=== PATIENT | female | born 1950 | race Caucasian/White ===

== ENCOUNTER → 2017-06-14 | Outpatient (CLI) | payer MEDICARE ==
[~2017-06-14] MED LIST: ACIDOPHILUS LA1 EACH PO; ALLOPURINOL100 MG PO; CEFADROXIL500 M1 PO; CYCLOBENZAPRINE10 MG PO; DOK100 M1 PO; DOXYCYCLINE100 M3 PO; FLAGYL500 MG PO; HYDROCODONE BIT1 T11 PO; LISINOPRIL10 M1 PO; LORAZEPAM1 MG PO; LYRICA225 MG PO; NEURONTIN300 MG PO; NUCYNTA50 MG PO; PEPTIC REL262 MG/15 PO; QUETIAPINE FUMA50 M1 PO; QUININE SULFAT324 MG PO
== END | disposition home or self-care (01) ==
LOC: RAD 09:23
DX: I10 Essential (primary) hypertension (principal); R05 Cough; R06.02 Shortness of breath; R09.89 Other specified symptoms and signs involving the circulatory and respiratory systems

== ENCOUNTER → 2017-07-19 | Outpatient (CLI) | payer MEDICARE | END | disposition home or self-care (01) | LOC: RAD 15:21 | DX: M46.02 Spinal enthesopathy, cervical region (principal) ==

== ENCOUNTER 2018-12-28 15:40 | Inpatient (IN) | payer MEDICARE ==
[~2018-12-28] VITALS: Ht 167.6 cm; Wt 95.7 kg
--- NOTE | ~2018-12-28 | EKG ---
[place], [place] ELECTROCARDIOGRAM REPORT NAME: ENRIQUE LITTLE UNIT #: [id number] ROOM: 408 DOCTOR: EPIPHANY DRAFT REPORT BIRTHDATE: [birth year] [facility] Test Date: 2018-12-28 Test Time: 21:07:44 Pat Name: ENRIQUE LITTLE Department: Room: 408 Gender: F Health Safety Specialist: Marisol Mchugh : 1950 Requested By: MARLENI ABEL DNP Order Number: [id number] Reading MD: Bradley Nguyen MD Measurements Intervals [place] Rate: 70 P: 20 LA: 180 QRS: -28 QRSD: 104 T: 37 QT: 446 QTc: 482 Interpretive Statements Sinus rhythm Borderline left axis deviation Abnormal R-wave progression, late transition No previous ECG available for comparison Electronically Signed On 12-29-2018 14:46:32 PDT by Bradley Nguyen MD CM:[email or web address]:ELECTROCARDIOGRAM REPORT [id number] MARLENI ABEL DNP EPIPHANY DRAFT REPORT MARLENI ABEL DNP
--- NOTE | ~2018-12-28 | EKG ---
[place], [place] ELECTROCARDIOGRAM REPORT NAME: ENRIQUE LITTLE UNIT #: [id number] ROOM: 408 DOCTOR: EPIPHNOHEMI DRAFT REPORT BIRTHDATE: [birth year] [facility] Test Date: 2018-12-28 Test Time: 15:53:20 Pat Name: ENRIQUE LITTLE Department: Room: 408 Gender: F Prison Guard: Marisol Mchugh : 1950 Requested By: MARLENI ABEL DNP Order Number: [id number] Reading MD: Bradley Nguyen MD Measurements Intervals [place] Rate: 77 P: 33 AK: 155 QRS: -33 QRSD: 94 T: 42 QT: 407 QTc: 461 Interpretive Statements Sinus rhythm Left axis deviation Low voltage, precordial leads Abnormal R-wave progression, late transition No previous ECG available for comparison Electronically Signed On 12-29-2018 4:40:08 PDT by Bradley Nguyen MD CM:EKGRPT:ELECTROCARDIOGRAM REPORT [id number] MARLENI ABEL DNP EPIPHANY DRAFT REPORT MARLENI ABEL DNP
--- NOTE | ~2018-12-28 | EKG ---
[place], [place] ELECTROCARDIOGRAM REPORT NAME: ENRIQUE LITTLE UNIT #: [id number] ROOM: 408 DOCTOR: JAIME DRAFT REPORT BIRTHDATE: [birth year] [facility] Test Date: 2018-12-28 Test Time: 18:42:32 Pat Name: ENRIQUE LITTLE Department: Room: 408 Gender: F Diagnostic Radiologist: Marisol Mchugh : 1950 Requested By: MARLENI ABEL DNP Order Number: [id number] Reading MD: Bradley Nguyen MD Measurements Intervals [place] Rate: 71 P: 38 LA: 169 QRS: -28 QRSD: 101 T: 51 QT: 441 QTc: 480 Interpretive Statements Sinus rhythm Left axis deviation Abnormal R-wave progression, late transition No previous ECG available for comparison Electronically Signed On 12-29-2018 4:46:27 PDT by Bradley Nguyen MD CM:EKGRPT:ELECTROCARDIOGRAM REPORT [id number] MARLENI ABEL DNP EPIPHANY DRAFT REPORT MARLENI ABEL DNP
[2018-12-28 15:40] VITALS: BP 111/61
[~2018-12-28 15:40] MED LIST changes: -CEFADROXIL500 M1 PO; +CIPRO500 MG PO; -LYRICA225 MG PO; +LYRICA300 MG PO
[2018-12-28 17:15] LABS: BASO # 0.1 10*3/uL (0.0-0.1); BASO % 0.9 % (0.0-1.0); EOS # 0.2 10*3/uL (0.0-0.4); EOS % 2.7 % (1.0-4.0); LYMPH % 29.8 % (27.0-41.0); MEAN CELL VOLUME 86.2 fl (81.0-99.0); MEAN CORPUSCULAR HGB 27.2 pg (27.0-31.0); MEAN CORPUSCULAR HGB CONC 31.6 g/dl (33.0-37.0); MEAN PLATELET VOLUME 10.5 fl (9.6-12.3); MONO % 14.5 % (3.0-9.0); NEUT # 3.4 10*3/uL (2.3-7.9); NEUT % 51.1 % (47.0-73.0); PLATELET COUNT AUTOMATED 193 10*3/uL (130-400); RED BLOOD COUNT 4.41 10*6/uL (4.10-5.10); RED CELL DISTRI WIDTH 20.2 % (0-14.5); WHITE BLOOD COUNT 6.7 10*3/uL (4.8-10.8)
[2018-12-28 17:26] LABS: ACT PARTIAL THROMBO TIME 36.8 SECONDS (20.0-32.1); INTERNATIONAL NORM RATIO 0.9 (2.0-3.5)
[2018-12-28 17:31] LABS: ALBUMIN 3.4 gm/dl (3.1-4.5); ALKALINE PHOSPHATASE 106 U/L (45-117); BUN 33 mg/dl (7-24); CHLORIDE 110 mmol/L (98-107); CREATININE 1.09 mg/dL (0.55-1.02); LIPASE 212 U/L (73-393); POTASSIUM 4.2 mmol/L (3.5-5.1); SGOT/AST 27 IU/L (3-35); SODIUM 139 mmol/L (136-145); TOTAL PROTEIN 7.4 gm/dL (6.4-8.2)
[2018-12-28 17:41] LABS: SGPT/ALT 26 U/L (12-78)
[2018-12-28 17:45] LABS: TROPONIN I < 0.015 ng/ml (<0.045)
--- NOTE | 2018-12-28 17:59 | NUR ---
PT HAS BEEN RESTING,SHE IS MILDLY DROWSY,REMAINS ALERT. APPEARS LESS ANXIOUS,PAIN HAS IMPROVED AFTER RX GIVEN. WAITING FOR TEST RESULTS. FISH LIGHT
[2018-12-28 18:06] LABS: BILIRUBIN NEGATIVE (NEGATIVE); BLOOD NEGATIVE (NEGATIVE); CLARITY CLEAR (CLEAR); COLOR YELLOW (YELLOW); GLUCOSE NEGATIVE (NEGATIVE); KETONE NEGATIVE (NEGATIVE); LEUKO ESTERASE NEGATIVE (NEGATIVE); NITRITE NEGATIVE (NEGATIVE); PH 5.5 (5.0-9.0); UROBILINOGEN 0.2 E.U./dl (0.2-1.0)
[2018-12-28 18:42] VITALS: BP 116/58
--- NOTE | 2018-12-28 19:06 | NUR ---
NURSE TO NURSE REPORT GIVEN TO THIS RN.PT AWAITING ROOM ASSIGNMENT FOR ADMISSION.
--- NOTE | 2018-12-28 19:20 | NUR ---
PT UPDATE ON PLAN OF CARE AT THIS TIME.PT DENIES ANY OPEN WOUNDS OR SORES.PT RESTING IN BED PLAYING ON HIS PHONE.
--- NOTE | 2018-12-28 19:35 | NUR ---
ADVISED BY COUNTER CLERK [employer]S NO BED AVAILABLE AT THIS TIME.
[2018-12-28 20:23] VITALS: BP 113/63
--- NOTE | 2018-12-28 20:34 | NUR ---
PT RESTING IN BED.VITALS REASSESSED.PT PROVIDED DRINK OF WATER.PT REPORTS SHE I HUNGRY AND OFFERED TURKEY SANDWICH AND CRACKERS.PT REFUSED FOOD I OFFERED AT THIS TIME.
--- NOTE | 2018-12-28 21:29 | NUR ---
PT RESTING IN BED WITH EYES CLOSED.PT PROVIDED PILLOW AND BLANKET.
--- NOTE | 2018-12-28 22:36 | NUR ---
PT AMBULATORY TO AND FROM RESTROOM.PT PROVIDED ROOM MEAL BY FAMILY.CALL THOMAS IS WITHIN REACH.
--- NOTE | 2018-12-28 22:55 | NUR ---
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
--- NOTE | 2018-12-28 23:57 | NUR ---
NEW IV ESTABLISHED AND FLUIDS CONTINUE TO INFUSE @ 125ML/HR.
[2018-12-29 00:25] VITALS: BP 111/63
--- NOTE | 2018-12-29 01:54 | NUR ---
PT PROVIDED BED FROM UNIT.PT REQUESTING MEDICATION OF SEROQUEL TO HELP HER SLEEP.
--- NOTE | 2018-12-29 02:04 | NUR ---
MINE SHIFTER CONTACTED FOR MEDICATION OF RESTORIL.
[2018-12-29 02:36] VITALS: BP 120/54
--- NOTE | 2018-12-29 03:41 | NUR ---
PT INFUSION OF 1 LITER BAG NS COMPLETED.IV HEPLOCK IN PLACE.
[2018-12-29 05:40] VITALS: BP 127/88
--- NOTE | 2018-12-29 05:40 | NUR ---
Time: 539 A 68 year old FEMALE admitted to 4E under services of ANSHU GOMEZ DO, Pt. arrived via bed from ER. Chief complaint: DYSPNEA. ZIGGY PYLE
[2018-12-29] MEDS ORDERED: FLECTOR1 EACH TD (06:26)
[2018-12-29] MEDS ORDERED: CYMBALTA30 MG PO ×2 (06:27→09:34)
--- NOTE | 2018-12-29 06:28 | NUR ---
CALLED DR. GUADARRAMA CALLED AND AWARE MEDICATIONS ARE VERIFIED.
[2018-12-29 06:48] LABS: BASO % 0.2 % (0.0-1.0); HEMATOCRIT 37.2 % (37.0-47.0); HEMOGLOBIN 11.9 g/dl (12.0-16.0); LYMPH # 0.6 10*3/uL (1.3-4.4); LYMPH % 8.9 % (27.0-41.0); MEAN CELL VOLUME 85.7 fl (81.0-99.0); MEAN CORPUSCULAR HGB 27.4 pg (27.0-31.0); MEAN PLATELET VOLUME 10.9 fl (9.6-12.3); MONO # 0.1 10*3/uL (0.1-1.0); NEUT # 5.9 10*3/uL (2.3-7.9); NEUT % 88.3 % (47.0-73.0); PLATELET COUNT AUTOMATED 201 10*3/uL (130-400); RED BLOOD COUNT 4.34 10*6/uL (4.10-5.10); RED CELL DISTRI WIDTH 19.7 % (0-14.5); WHITE BLOOD COUNT 6.6 10*3/uL (4.8-10.8)
[2018-12-29 07:25] LABS: CHLORIDE 111 mmol/L (98-107); POTASSIUM 4.5 mmol/L (3.5-5.1); SODIUM 140 mmol/L (136-145)
[2018-12-29 07:44] LABS: ALBUMIN 3.2 gm/dl (3.1-4.5); ALKALINE PHOSPHATASE 97 U/L (45-117); BUN 27 mg/dl (7-24); CREATININE 0.93 mg/dL (0.55-1.02); SGOT/AST 21 IU/L (3-35); SGPT/ALT 21 U/L (12-78); THYROID STIM HORMONE (HS) 0.832 uIU/ml (0.358-4.75); TOTAL PROTEIN 7.2 gm/dL (6.4-8.2)
[2018-12-29 08:00] VITALS: BP 128/78
--- NOTE | 2018-12-29 08:35 | NUR ---
Patient resting quietly with no c/o discomfort. Respirations easy and regular. Vital signs stable. No overt distress. BRYANT ORTEGA
--- NOTE | 2018-12-29 08:54 | NUR ---
PHYSICAL THERAPY Physical therapy screen received and chart reviewed. Patient ambulating to/from bathroom in room. Consider PT evaluation if decline in functional status presents. Thank you. Ava Agosto,PT,DPT
[2018-12-29 12:00] VITALS: BP 116/56
--- NOTE | 2018-12-29 15:49 | NUR ---
PATIENT RESTING IN BED. NO DISTRESS NOTED. CALL LIGHT WITHIN REACH.
--- NOTE | 2018-12-29 16:52 | NUR ---
CALLED DR. MILLAN TO CLARIFY IF THE PATIENT WAS GOING HOME TODAY. PATIENT STATED THEY TOLD HER SHE WOULD BE. AWAITING A CALL BACK.
--- NOTE | 2018-12-29 17:41 | NUR ---
Nursing screen received and chart reviewed. If patient should have a decline in ADLs then refer to OT. Thank you. Red Goel OTR/L
--- NOTE | 2018-12-29 17:42 | NUR ---
Nursing screen received and chart reviewed. Patient could benefit from occupational therapy after orthopedic surgery. Thank you. Mai Goel OTR/l
--- NOTE | 2018-12-29 17:45 | NUR ---
PATIENT GIVEN DISCHARGE INSTRUCTIONS AND ALL QUESTIONS ANSWERED. EDUCATED ON SHORTNESS OF BREATH. IV SITE REMOVED. PATIENT TAKEN DOWN BY WHEELCHAIR BY STAFF TO DAUGHTER WITH ALL BELONGINGS.
== END 2018-12-29 17:45 | disposition home or self-care (01) | DRG 153 ==
LOC: ED 15:40 → EDHOLD 18:27 → 4E 18:27
PROVIDERS: Internal Medicine; Nurse Practitioner Family; ADMIT Internal Medicine
DX: J06.9 Acute upper respiratory infection, unspecified (principal); R53.1 Weakness; M25.511 Pain in right shoulder; F41.9 Anxiety disorder, unspecified; M10.9 Gout, unspecified; M25.512 Pain in left shoulder; M41.9 Scoliosis, unspecified; I10 Essential (primary) hypertension; E83.41 Hypermagnesemia; E87.8 Other disorders of electrolyte and fluid balance, not elsewhere classified; F32.9 Major depressive disorder, single episode, unspecified; G89.29 Other chronic pain; R07.89 Other chest pain; J44.9 Chronic obstructive pulmonary disease, unspecified; G47.00 Insomnia, unspecified; M79.606 Pain in leg, unspecified; Z96.651 Presence of right artificial knee joint; Z85.3 Personal history of malignant neoplasm of breast; Z86.73 Personal history of transient ischemic attack (TIA), and cerebral infarction without residual deficits; Z90.49 Acquired absence of other specified parts of digestive tract; Z90.710 Acquired absence of both cervix and uterus; Z98.84 Bariatric surgery status; Z90.11 Acquired absence of right breast and nipple; Z98.51 Tubal ligation status; Z80.0 Family history of malignant neoplasm of digestive organs; Z80.1 Family history of malignant neoplasm of trachea, bronchus and lung; Z83.3 Family history of diabetes mellitus; Z82.49 Family history of ischemic heart disease and other diseases of the circulatory system; Z91.040 Latex allergy status; Z91.09 Other allergy status, other than to drugs and biological substances; Z79.899 Other long term (current) drug therapy

== ENCOUNTER → 2019-05-18 | Outpatient (CLI) | payer MEDICARE ==
[~2019-05-18] MED LIST changes: +CYMBALTA30 MG PO; +FLECTOR1 EACH TD
== END | disposition home or self-care (01) ==
LOC: MAMMO 05-10 08:00
DX: Z85.3 Personal history of malignant neoplasm of breast (principal)

== ENCOUNTER → 2019-06-23 | Outpatient (CLI) | payer MEDICARE | END | disposition home or self-care (01) | LOC: RAD 11:57 | DX: M47.812 Spondylosis without myelopathy or radiculopathy, cervical region (principal); M19.011 Primary osteoarthritis, right shoulder; M1A.40X0 Other secondary chronic gout, unspecified site, without tophus (tophi); I10 Essential (primary) hypertension; D64.9 Anemia, unspecified; G89.29 Other chronic pain; R29.3 Abnormal posture ==

== ENCOUNTER → 2019-09-15 | Outpatient (CLI) | payer MEDICARE ==
[2019-09-15 14:30] LABS: PTH INTACT 147.1 pg/mL (18.5-88.0); VITAMIN D, 25-HYDROXY 12.3 ng/mL (30-100)
== END | disposition home or self-care (01) ==
LOC: LAB 13:05
PROVIDERS: Nurse Practitioner Family
DX: E83.51 Hypocalcemia (principal)

== ENCOUNTER → 2019-11-08 | Outpatient (CLI) | payer MEDICARE | END | disposition home or self-care (01) | LOC: RAD 08:00 | DX: M81.0 Age-related osteoporosis without current pathological fracture (principal) ==

== ENCOUNTER → 2020-02-07 | Outpatient (CLI) | payer MEDICARE | END | disposition home or self-care (01) | LOC: LAB 09:16 | PROVIDERS: ATTEND Nurse Practitioner Family | DX: R06.02 Shortness of breath (principal); E61.1 Iron deficiency; I10 Essential (primary) hypertension; E55.9 Vitamin D deficiency, unspecified; Z23 Encounter for immunization; Z85.3 Personal history of malignant neoplasm of breast; Z98.84 Bariatric surgery status ==

== ENCOUNTER → 2020-04-23 | Outpatient (CLI) | payer MEDICARE ==
[2020-04-23 10:12] LABS: BASO # 0.1 10*3/uL (0.0-0.1); BASO % 0.9 % (0.0-1.0); EOS # 0.2 10*3/uL (0.0-0.4); EOS % 2.6 % (1.0-4.0); HEMATOCRIT 40.4 % (37.0-47.0); LYMPH # 1.6 10*3/uL (1.3-4.4); MEAN CELL VOLUME 87.1 fl (81.0-99.0); MEAN CORPUSCULAR HGB 27.8 pg (27.0-31.0); MEAN CORPUSCULAR HGB CONC 31.9 g/dl (33.0-37.0); MEAN PLATELET VOLUME 9.8 fl (9.6-12.3); MONO # 0.7 10*3/uL (0.1-1.0); MONO % 8.5 % (3.0-9.0); NEUT # 5.2 10*3/uL (2.3-7.9); NEUT % 67.5 % (47.0-73.0); PLATELET COUNT AUTOMATED 242 10*3/uL (130-400); RED BLOOD COUNT 4.64 10*6/uL (4.10-5.10); RED CELL DISTRI WIDTH 15.9 % (0-14.5); WHITE BLOOD COUNT 7.7 10*3/uL (4.8-10.8)
[2020-04-23 10:37] LABS: ALBUMIN 3.3 gm/dl (3.1-4.5); BUN 19 mg/dl (7-24); CHLORIDE 111 mmol/L (98-107); CREATININE 0.83 mg/dL (0.55-1.02); POTASSIUM 4.3 mmol/L (3.5-5.1); SGOT/AST 17 IU/L (3-35); SGPT/ALT 27 U/L (12-78); SODIUM 140 mmol/L (136-145)
[2020-04-23 10:40] LABS: ALKALINE PHOSPHATASE 95 U/L (45-117); CHOLESTEROL 140 mg/dL (<200); HDL CHOLESTEROL 72 mg/dl (40-60); LDL CHOLESTEROL 56 mg/dL (9-159); TRIGLYCERIDES 59 mg/dl (<150); VLDL CHOLESTEROL 12 mg/dL (6-40)
== END | disposition home or self-care (01) ==
LOC: LAB 09:49
PROVIDERS: ATTEND Nurse Practitioner Family
DX: I10 Essential (primary) hypertension (principal)

== ENCOUNTER → 2020-11-20 | Outpatient (CLI) | payer MEDICARE ==
[2020-11-20 10:19] LABS: ALBUMIN 3.5 gm/dl (3.1-4.5); BUN 21 mg/dl (7-24); CHLORIDE 115 mmol/L (98-107); CHOLESTEROL 153 mg/dL (<200); IRON 95 ug/dL (50-170); LDL CHOLESTEROL 71 mg/dL (9-159); POTASSIUM 4.1 mmol/L (3.5-5.1); SGOT/AST 25 IU/L (3-35); SGPT/ALT 28 U/L (12-78); SODIUM 143 mmol/L (136-145); TOTAL IRON BINDING CAPACITY 255 ug/dl (250-450); TRIGLYCERIDES 82 mg/dl (<150)
[2020-11-20 10:23] LABS: ALKALINE PHOSPHATASE 70 U/L (45-117); TOTAL PROTEIN 7.1 gm/dL (6.4-8.2)
[2020-11-20 11:07] LABS: FERRITIN 285.1 ng/mL (10.0-291.0); PTH INTACT 101.3 pg/mL (18.5-88.0); VITAMIN D, 25-HYDROXY 24.9 ng/mL (30-100)
== END | disposition home or self-care (01) ==
LOC: LAB 09:11
PROVIDERS: ATTEND Internal Medicine Endocrinology, Diabetes & Metabolism
DX: D64.9 Anemia, unspecified (principal); M81.0 Age-related osteoporosis without current pathological fracture; E55.9 Vitamin D deficiency, unspecified; E66.9 Obesity, unspecified; E53.8 Deficiency of other specified B group vitamins; Z98.84 Bariatric surgery status; E21.3 Hyperparathyroidism, unspecified; Z79.899 Other long term (current) drug therapy

== ENCOUNTER → 2021-02-13 | Outpatient (CLI) | payer MEDICARE | END | disposition home or self-care (01) | LOC: RAD 12:20 | PROVIDERS: ATTEND Nurse Practitioner Family | DX: U07.1 COVID-19 (principal); J12.82 Pneumonia due to coronavirus disease 2019; R06.02 Shortness of breath; R05.9 Cough, unspecified; R19.7 Diarrhea, unspecified; R68.83 Chills (without fever); R06.2 Wheezing; R00.0 Tachycardia, unspecified; R51.9 Headache, unspecified; R53.83 Other fatigue ==

== ENCOUNTER 2021-07-08 11:54 | Inpatient (IN) | payer MEDICARE ==
[~2021-07-08] VITALS: Ht 167.6 cm; Wt 101.2 kg
[2021-07-08 12:01] VITALS: BP 72/40
[2021-07-08 12:33] LABS: HEMATOCRIT 46.6 % (37.0-47.0); MEAN CELL VOLUME 91.4 fl (81.0-99.0); MEAN CORPUSCULAR HGB 29.4 pg (27.0-31.0); MEAN CORPUSCULAR HGB CONC 32.2 g/dl (33.0-37.0); MEAN PLATELET VOLUME 10.4 fl (9.6-12.3); PLATELET COUNT AUTOMATED 191 10*3/uL (130-400); RED CELL DISTRI WIDTH 13.3 % (0-14.5); WHITE BLOOD COUNT 36.8 10*3/uL (4.8-10.8)
[2021-07-08 12:37] LABS: MANUAL DIFF REFLEX YES
[2021-07-08 12:46] LABS: ACT PARTIAL THROMBO TIME 40.4 SECONDS (20.0-32.1)
[2021-07-08 12:49] VITALS: BP 96/50
[2021-07-08 12:53] LABS: PLATELET SUFFICIENCY NORMAL (NORMAL); TOTAL CELLS COUNTED 100 #CELLS
[2021-07-08 12:56] LABS: CREATININE 1.32 mg/dL (0.55-1.02); TOTAL PROTEIN 7.2 gm/dL (6.4-8.2)
[2021-07-08 13:44] VITALS: BP 112/49
[2021-07-08 16:42] VITALS: BP 117/57
[2021-07-08 18:00] VITALS: BP 138/76
[2021-07-08 20:00] VITALS: BP 130/60; BP 97/65
[2021-07-09] VITALS: BP 115/51
[2021-07-09 06:34] LABS: BASO % 0.2 % (0.0-1.0); EOS # 0.3 10*3/uL (0.0-0.4); EOS % 1.9 % (1.0-4.0); HEMATOCRIT 35.3 % (37.0-47.0); LYMPH # 1.6 10*3/uL (1.3-4.4); LYMPH % 9.8 % (27.0-41.0); MEAN CELL VOLUME 90.1 fl (81.0-99.0); MEAN CORPUSCULAR HGB 29.3 pg (27.0-31.0); MEAN CORPUSCULAR HGB CONC 32.6 g/dl (33.0-37.0); MEAN PLATELET VOLUME 10.9 fl (9.6-12.3); MONO # 1.1 10*3/uL (0.1-1.0); NEUT # 12.9 10*3/uL (2.3-7.9); NEUT % 80.5 % (47.0-73.0); PLATELET COUNT AUTOMATED 153 10*3/uL (130-400); RED BLOOD COUNT 3.92 10*6/uL (4.10-5.10); RED CELL DISTRI WIDTH 13.5 % (0-14.5); WHITE BLOOD COUNT 16.1 10*3/uL (4.8-10.8)
[2021-07-09 06:40] LABS: BUN 17 mg/dl (7-24); CHLORIDE 113 mmol/L (98-107); CREATININE 0.84 mg/dL (0.55-1.02); POTASSIUM 3.5 mmol/L (3.5-5.1); SGOT/AST 16 IU/L (3-35); SGPT/ALT 14 U/L (12-78); SODIUM 140 mmol/L (136-145); TOTAL PROTEIN 5.8 gm/dL (6.4-8.2)
[2021-07-09 06:44] LABS: ALKALINE PHOSPHATASE 58 U/L (45-117); CPK 171 U/L (26-192); FREE T4 1.04 ng/dl (0.76-1.46); THYROID STIM HORMONE (HS) 0.483 uIU/ml (0.358-4.75)
[2021-07-09 08:00] VITALS: BP 108/59
[2021-07-09 09:57] LABS: BILIRUBIN Negative (Negative); BLOOD Negative (Negative); CLARITY Clear (Clear); COLOR Yellow (Yellow); GLUCOSE Negative (Negative); KETONE Trace (Negative); LEUKO ESTERASE Negative (Negative); NITRITE Negative (Negative); SPECIFIC GRAVITY 1.015 (1.001-1.030); UROBILINOGEN 0.2 E.U./dl (0.0-1.0)
[2021-07-09 10:42] LABS: BACTERIA 1+
[2021-07-09 12:00] VITALS: BP 144/66
[2021-07-09 16:00] VITALS: BP 128/65
[2021-07-09 20:00] VITALS: BP 120/70; BP 121/95
[2021-07-10] VITALS: BP 102/55
[2021-07-10 05:47] LABS: BUN 14 mg/dl (7-24); CHLORIDE 114 mmol/L (98-107); CREATININE 0.81 mg/dL (0.55-1.02); SODIUM 142 mmol/L (136-145)
[2021-07-10 06:02] LABS: BASO # 0.1 10*3/uL (0.0-0.1); BASO % 0.7 % (0.0-1.0); EOS # 0.4 10*3/uL (0.0-0.4); EOS % 3.9 % (1.0-4.0); HEMATOCRIT 37.1 % (37.0-47.0); LYMPH # 1.7 10*3/uL (1.3-4.4); LYMPH % 17.9 % (27.0-41.0); MEAN CELL VOLUME 92.1 fl (81.0-99.0); MEAN CORPUSCULAR HGB 29.5 pg (27.0-31.0); MEAN CORPUSCULAR HGB CONC 32.1 g/dl (33.0-37.0); MEAN PLATELET VOLUME 10.7 fl (9.6-12.3); MONO # 0.9 10*3/uL (0.1-1.0); MONO % 9.1 % (3.0-9.0); NEUT # 6.4 10*3/uL (2.3-7.9); NEUT % 67.9 % (47.0-73.0); PLATELET COUNT AUTOMATED 164 10*3/uL (130-400); RED BLOOD COUNT 4.03 10*6/uL (4.10-5.10); RED CELL DISTRI WIDTH 13.5 % (0-14.5); WHITE BLOOD COUNT 9.4 10*3/uL (4.8-10.8)
[2021-07-10 08:00] VITALS: BP 129/65
[2021-07-10 12:00] VITALS: BP 132/77
[2021-07-10 16:00] VITALS: BP 121/73
[2021-07-10] MEDS ORDERED: METRONIDAZOLE500 M1 PO (17:30)
[2021-07-10 20:00] VITALS: BP 136/74
[2021-07-11 06:24] LABS: BASO # 0.1 10*3/uL (0.0-0.1); BASO % 0.8 % (0.0-1.0); EOS # 0.4 10*3/uL (0.0-0.4); EOS % 4.8 % (1.0-4.0); HEMATOCRIT 38.1 % (37.0-47.0); LYMPH # 1.6 10*3/uL (1.3-4.4); LYMPH % 21.2 % (27.0-41.0); MEAN CELL VOLUME 90.7 fl (81.0-99.0); MEAN CORPUSCULAR HGB 29.5 pg (27.0-31.0); MEAN CORPUSCULAR HGB CONC 32.5 g/dl (33.0-37.0); MEAN PLATELET VOLUME 10.8 fl (9.6-12.3); MONO # 0.8 10*3/uL (0.1-1.0); MONO % 9.8 % (3.0-9.0); NEUT # 4.8 10*3/uL (2.3-7.9); NEUT % 62.6 % (47.0-73.0); PLATELET COUNT AUTOMATED 187 10*3/uL (130-400); RED CELL DISTRI WIDTH 13.5 % (0-14.5); WHITE BLOOD COUNT 7.7 10*3/uL (4.8-10.8)
[2021-07-11 08:00] VITALS: BP 128/86
== END 2021-07-11 10:50 | disposition home or self-care (01) | DRG 871 ==
LOC: ED 11:54 → EDHOLD 14:27 → 4E 14:27 → EDHOLD 14:52 → 4E 16:33
PROVIDERS: Emergency Medicine; Internal Medicine; Internal Medicine Infectious Disease; ADMIT Internal Medicine; ATTEND Internal Medicine
DX: A41.9 Sepsis, unspecified organism (principal); N17.0 Acute kidney failure with tubular necrosis; E87.2 Acidosis; K80.00 Calculus of gallbladder with acute cholecystitis without obstruction; K56.690 Other partial intestinal obstruction; J98.11 Atelectasis; K92.1 Melena; Z66 Do not resuscitate; R65.20 Severe sepsis without septic shock; I95.89 Other hypotension; J44.9 Chronic obstructive pulmonary disease, unspecified; R73.9 Hyperglycemia, unspecified; E86.1 Hypovolemia; M1A.9XX0 Chronic gout, unspecified, without tophus (tophi); I10 Essential (primary) hypertension; F41.9 Anxiety disorder, unspecified; D50.9 Iron deficiency anemia, unspecified; F32.A Depression, unspecified; M79.604 Pain in right leg; G89.29 Other chronic pain; Z91.040 Latex allergy status; Z88.8 Allergy status to other drugs, medicaments and biological substances; Z79.899 Other long term (current) drug therapy; Z90.49 Acquired absence of other specified parts of digestive tract; Z90.710 Acquired absence of both cervix and uterus; Z98.51 Tubal ligation status

== ENCOUNTER → 2021-09-18 | Day surgery (SDC) | payer MEDICARE ==
[~2021-09-18] VITALS: Ht 167.6 cm; Wt 99.8 kg
[~2021-09-18] MED LIST changes: +B121000 MCG/1 IM; +CARAFATE1 G1 PO; +DOXYCYCLINE HY100 M3 PO; -DOXYCYCLINE100 M3 PO; +METRONIDAZOLE500 M1 PO; +OXYBUTYNIN5 MG PO; +PROTONIX40 MG PO; +VITAMIN C500 M4 PO
[2021-09-18 08:20] VITALS: BP 130/61
[2021-09-18 09:20] VITALS: BP 119/71
[2021-09-18 09:23] VITALS: BP 136/86
[2021-09-18 09:38] VITALS: BP 137/75
== END | disposition home or self-care (01) ==
LOC: SDC 09-15 12:30
PROVIDERS: ATTEND Surgery
DX: Z12.11 Encounter for screening for malignant neoplasm of colon (principal); K57.30 Diverticulosis of large intestine without perforation or abscess without bleeding; K20.90 Esophagitis, unspecified without bleeding; I10 Essential (primary) hypertension; F32.9 Major depressive disorder, single episode, unspecified; K21.9 Gastro-esophageal reflux disease without esophagitis; J44.9 Chronic obstructive pulmonary disease, unspecified; Z86.73 Personal history of transient ischemic attack (TIA), and cerebral infarction without residual deficits; M86.8X8 Other osteomyelitis, other site; Z98.84 Bariatric surgery status; M81.0 Age-related osteoporosis without current pathological fracture; Z85.3 Personal history of malignant neoplasm of breast; Z96.651 Presence of right artificial knee joint; Z90.710 Acquired absence of both cervix and uterus; Z98.890 Other specified postprocedural states; Z79.899 Other long term (current) drug therapy
CPT/HCPCS: 00813; 43239; G0121

== ENCOUNTER → 2021-09-25 | Outpatient (CLI) | payer MEDICARE | END | disposition home or self-care (01) | LOC: MAMMO 12:37 | PROVIDERS: ATTEND Nurse Practitioner Family | DX: N64.59 Other signs and symptoms in breast (principal); Z85.3 Personal history of malignant neoplasm of breast ==

== ENCOUNTER → 2022-05-04 | Outpatient (CLI) | payer MEDICARE ==
[~2022-05-04] MED LIST changes: +ALLOPURINOL300 MG PO; +AVPAK AZITHROM250 M1 PO; +MULTI-VITAMIN1 EACH PO; +SOLIFENACIN SUC10 MG PO; +VITAMIN D325 MCG PO
== END | disposition home or self-care (01) ==
LOC: CT 01:25
PROVIDERS: ATTEND Urology
DX: K80.20 Calculus of gallbladder without cholecystitis without obstruction (principal); K57.90 Diverticulosis of intestine, part unspecified, without perforation or abscess without bleeding

== ENCOUNTER 2022-05-30 13:36 | Emergency (ER) | payer MEDICARE ==
[~2022-05-30] VITALS: Ht 167.6 cm; Wt 99.8 kg
[2022-05-30 13:50] VITALS: BP 140/78
[2022-05-30] MEDS ORDERED: METHOCARBAMOL500 M1 PO ×2 (15:08→15:19)
[2022-05-30] MEDS ORDERED: NAPROXEN250 MG PO ×2 (15:08→15:19)
== END 2022-05-30 15:19 | disposition home or self-care (01) ==
LOC: ED 13:36
DX: S16.1XXA Strain of muscle, fascia and tendon at neck level, initial encounter (principal); E07.89 Other specified disorders of thyroid; Z91.040 Latex allergy status; Z88.8 Allergy status to other drugs, medicaments and biological substances; Z90.11 Acquired absence of right breast and nipple; Z90.49 Acquired absence of other specified parts of digestive tract; Z90.89 Acquired absence of other organs; Z90.710 Acquired absence of both cervix and uterus; Z98.51 Tubal ligation status; Z98.890 Other specified postprocedural states; Z96.651 Presence of right artificial knee joint; W01.0XXA Fall on same level from slipping, tripping and stumbling without subsequent striking against object, initial encounter; Y93.89 Activity, other specified; Y92.009 Unspecified place in unspecified non-institutional (private) residence as the place of occurrence of the external cause; Y99.8 Other external cause status

== ENCOUNTER → 2022-08-17 | Outpatient (CLI) | payer MEDICARE ==
[~2022-08-17] MED LIST changes: +METHOCARBAMOL500 M1 PO; +NAPROXEN250 MG PO
== END | disposition home or self-care (01) ==
LOC: US 07-23 13:00
PROVIDERS: ATTEND Nurse Practitioner Family
DX: F41.9 Anxiety disorder, unspecified (principal); E04.1 Nontoxic single thyroid nodule; G47.00 Insomnia, unspecified; F43.21 Adjustment disorder with depressed mood

== ENCOUNTER → 2022-09-08 | Outpatient (CLI) | payer MEDICARE | END | disposition home or self-care (01) | LOC: SDC 11:00 → EDSTATUS 11:00 | PROVIDERS: ATTEND Nurse Practitioner Family | DX: E04.9 Nontoxic goiter, unspecified (principal); F43.21 Adjustment disorder with depressed mood; F41.9 Anxiety disorder, unspecified; G47.00 Insomnia, unspecified; G62.9 Polyneuropathy, unspecified; M86.9 Osteomyelitis, unspecified; Z98.84 Bariatric surgery status; Z90.710 Acquired absence of both cervix and uterus; Z79.899 Other long term (current) drug therapy ==

== ENCOUNTER 2022-11-24 13:08 | Emergency (ER) | payer MEDICARE ==
[~2022-11-24] VITALS: Ht 167.6 cm; Wt 90.7 kg
[2022-11-24 13:21] VITALS: BP 151/76
[2022-11-24 14:49] LABS: BASO # 0.1 10*3/uL (0.0-0.1); BASO % 0.6 % (0.0-1.0); EOS # 0.1 10*3/uL (0.0-0.4); EOS % 1.6 % (1.0-4.0); LYMPH # 1.6 10*3/uL (1.3-4.4); LYMPH % 17.9 % (27.0-41.0); MEAN CELL VOLUME 90.7 fl (81.0-99.0); MEAN CORPUSCULAR HGB 30.8 pg (27.0-31.0); MEAN PLATELET VOLUME 10.3 fl (9.6-12.3); MONO # 0.7 10*3/uL (0.1-1.0); MONO % 8.4 % (3.0-9.0); NEUT # 6.3 10*3/uL (2.3-7.9); NEUT % 71.2 % (47.0-73.0); PLATELET COUNT AUTOMATED 200 10*3/uL (130-400); RED BLOOD COUNT 4.41 10*6/uL (4.10-5.10); RED CELL DISTRI WIDTH 14.1 % (0-14.5); WHITE BLOOD COUNT 8.8 10*3/uL (4.8-10.8)
[2022-11-24 15:07] LABS: ACT PARTIAL THROMBO TIME 39.1 SECONDS (20.0-32.1)
[2022-11-24 15:21] LABS: POTASSIUM 4.7 mmol/L (3.4-5.1); TOTAL PROTEIN 6.9 gm/dL (6.0-8.0)
[2022-11-24 15:22] LABS: BILIRUBIN Negative (Negative); BLOOD Negative (Negative); CLARITY Clear (Clear); COLOR Yellow (Yellow); GLUCOSE Negative (Negative); KETONE Negative (Negative); LEUKO ESTERASE Negative (Negative); NITRITE Negative (Negative); UROBILINOGEN 0.2 E.U./dl (0.0-1.0)
[2022-11-24 15:38] LABS: BACTERIA 1+; RBC 0-2 rbc/hpf (0-2); WBC 0-2 wbc/hpf (0-5)
[2022-11-24] MEDS ORDERED: ONDANSETRON4 MG SL (16:58)
== END 2022-11-24 17:25 | disposition home or self-care (01) ==
LOC: ED 13:08
PROVIDERS: Emergency Medicine
DX: S06.0X0A Concussion without loss of consciousness, initial encounter (principal); E86.0 Dehydration; E04.1 Nontoxic single thyroid nodule; R11.0 Nausea; F32.A Depression, unspecified; I10 Essential (primary) hypertension; J44.9 Chronic obstructive pulmonary disease, unspecified; Z86.73 Personal history of transient ischemic attack (TIA), and cerebral infarction without residual deficits; Z90.11 Acquired absence of right breast and nipple; Z88.8 Allergy status to other drugs, medicaments and biological substances; Z91.040 Latex allergy status; Z90.49 Acquired absence of other specified parts of digestive tract; Z90.710 Acquired absence of both cervix and uterus; Z96.651 Presence of right artificial knee joint; Z98.51 Tubal ligation status; Z90.89 Acquired absence of other organs; W22.03XA Walked into furniture, initial encounter; Y93.89 Activity, other specified; Y92.002 Bathroom of unspecified non-institutional (private) residence as the place of occurrence of the external cause; Y99.8 Other external cause status

== ENCOUNTER → 2023-01-04 | Outpatient (CLI) | payer MEDICARE ==
[~2023-01-04] MED LIST changes: +ONDANSETRON4 MG SL
[2023-01-04 16:43] LABS: BASO # 0.1 10*3/uL (0.0-0.1); EOS # 0.5 10*3/uL (0.0-0.4); EOS % 5.3 % (1.0-4.0); LYMPH # 1.8 10*3/uL (1.3-4.4); LYMPH % 18.7 % (27.0-41.0); MEAN CELL VOLUME 94.9 fl (81.0-99.0); MEAN CORPUSCULAR HGB CONC 32.7 g/dl (33.0-37.0); MEAN PLATELET VOLUME 9.8 fl (9.6-12.3); MONO # 0.8 10*3/uL (0.1-1.0); MONO % 8.2 % (3.0-9.0); NEUT # 6.3 10*3/uL (2.3-7.9); NEUT % 64.5 % (47.0-73.0); PLATELET COUNT AUTOMATED 331 10*3/uL (130-400); RED BLOOD COUNT 4.32 10*6/uL (4.10-5.10); RED CELL DISTRI WIDTH 14.3 % (0-14.5); WHITE BLOOD COUNT 9.7 10*3/uL (4.8-10.8)
[2023-01-04 17:05] LABS: ALKALINE PHOSPHATASE 135 U/L (46-116); BUN 17 mg/dl (9-23); CHLORIDE 113 mmol/L (98-107); POTASSIUM 4.6 mmol/L (3.4-5.1); SGPT/ALT 47 U/L (10-49); TOTAL PROTEIN 6.8 gm/dL (6.0-8.0)
== END | disposition home or self-care (01) ==
LOC: LAB 16:10
PROVIDERS: ATTEND Internal Medicine Infectious Disease
DX: F07.81 Postconcussional syndrome (principal); M25.511 Pain in right shoulder; R51.9 Headache, unspecified; N39.0 Urinary tract infection, site not specified; I10 Essential (primary) hypertension; E78.2 Mixed hyperlipidemia; Z96.651 Presence of right artificial knee joint

== ENCOUNTER → 2023-05-26 | Outpatient (CLI) | payer MEDICARE ==
[2023-05-26 15:18] LABS: BASO # 0.1 10*3/uL (0.0-0.1); BASO % 0.6 % (0.0-1.0); EOS # 0.3 10*3/uL (0.0-0.4); EOS % 3.1 % (1.0-4.0); HEMATOCRIT 40.4 % (37.0-47.0); LYMPH # 1.8 10*3/uL (1.3-4.4); LYMPH % 21.8 % (27.0-41.0); MEAN CELL VOLUME 96.7 fl (81.0-99.0); MEAN CORPUSCULAR HGB 30.9 pg (27.0-31.0); MEAN CORPUSCULAR HGB CONC 31.9 g/dl (33.0-37.0); MEAN PLATELET VOLUME 9.4 fl (9.6-12.3); MONO # 0.8 10*3/uL (0.1-1.0); MONO % 9.8 % (3.0-9.0); NEUT # 5.2 10*3/uL (2.3-7.9); NEUT % 64.2 % (47.0-73.0); PLATELET COUNT AUTOMATED 209 10*3/uL (130-400); RED BLOOD COUNT 4.18 10*6/uL (4.10-5.10); RED CELL DISTRI WIDTH 13.7 % (0-14.5); WHITE BLOOD COUNT 8.1 10*3/uL (4.8-10.8)
[2023-05-26 15:44] LABS: ALKALINE PHOSPHATASE 59 U/L (46-116); BUN 20 mg/dl (9-23); CHLORIDE 108 mmol/L (98-107); POTASSIUM 4.6 mmol/L (3.4-5.1); SGPT/ALT 17 U/L (5-49); TOTAL PROTEIN 7.1 gm/dL (6.0-8.0)
== END | disposition home or self-care (01) ==
LOC: LAB 15:04
PROVIDERS: ATTEND Nurse Practitioner Family
DX: R79.89 Other specified abnormal findings of blood chemistry (principal); Z79.899 Other long term (current) drug therapy

== ENCOUNTER → 2023-08-02 | Outpatient (CLI) | payer MEDICARE | END | disposition home or self-care (01) | LOC: RAD 07-23 10:30 | PROVIDERS: ATTEND Nurse Practitioner Family | DX: Z13.820 Encounter for screening for osteoporosis (principal); N95.0 Postmenopausal bleeding; Z90.710 Acquired absence of both cervix and uterus; Z98.890 Other specified postprocedural states; Z82.62 Family history of osteoporosis ==

== ENCOUNTER → 2023-08-10 | Outpatient (CLI) | payer MEDICARE | END | disposition home or self-care (01) | LOC: MAMMO 01:12 | PROVIDERS: ATTEND Nurse Practitioner Family | DX: Z85.3 Personal history of malignant neoplasm of breast (principal) ==